=== PATIENT | female | born 1960 | race Caucasian/White ===

== ENCOUNTER → 2017-12-29 | Outpatient (CLI) | payer OTHER ==
[~2017-12-29] MED LIST: ACCUNEB SO1.25 MG/1 INH; LIPITOR 20 MG T20 M1 PO; NORCO 5-325 TA1 EACH PO; PAXIL10 MG PO; PREVACID15 MG PO; SINGULAIR 10 MG10 M1 PO
== END ==
LOC: RAD 09:51
DX: Z12.31 Encounter for screening mammogram for malignant neoplasm of breast (principal)

== ENCOUNTER → 2020-02-09 | Outpatient (CLI) | payer OTHER | LOC: LAB 08:11 | PROVIDERS: ATTEND Neuromusculoskeletal Medicine & OMM | DX: R51 Headache (principal); R43.9 Unspecified disturbances of smell and taste; Z20.828 Contact with and (suspected) exposure to other viral communicable diseases ==

== ENCOUNTER → 2020-09-10 | Outpatient (CLI) | payer OTHER | LOC: LAB 09:16 | PROVIDERS: ATTEND Neuromusculoskeletal Medicine & OMM | DX: J02.9 Acute pharyngitis, unspecified (principal); R05 Cough; Z20.822 Contact with and (suspected) exposure to COVID-19 ==